=== PATIENT | male | born 1975 | race Caucasian/White ===

== ENCOUNTER 2017-07-15 06:50 | Day surgery (SDC) | payer OTHER, SELFPAY ==
[2017-07-15 07:17] VITALS: BP 125/78; PULSE 80; RESP 16; TEMP 37.6; O2SAT 96; BMI 36.1
--- NOTE | 2017-07-15 08:10 | RAD_ITS ---
PROCEDURE: Lumbar facet joint injection. DATE OF EXAMINATION: July 15, 2017. INDICATION: Male, 41 years old. Low back pain. FLUOROSCOPY TIME (if supplied): (0:16) minutes/seconds Intraoperative fluoroscopic imaging provided for left L3-S1 facet joint block. RAD/Lumbar Spine 2 or 3 Views IMPRESSION: Fluoroscopic services provided for left L3-S1 facet joint block. Electronically Signed: aBl Brown MD at 10:23 EST Tel [phone], Service support ,
[2017-07-15] MEDS: MethylPREDNISolone Acetate 80 MG/ML Vial (08:29)
[2017-07-15] MEDS: Bupivacaine 0.25% 30 ML Vial (08:30)
[2017-07-15 08:38] VITALS: BP 123/83; BP 125/78; PULSE 80; RESP 16; TEMP 37; O2SAT 94
[2017-07-15 08:40] VITALS: BP 125/61; BP 125/78; PULSE 68; RESP 16; O2SAT 94
[2017-07-15 08:45] VITALS: BP 121/68; BP 125/78; PULSE 63; RESP 16; O2SAT 96
[2017-07-15 08:50] VITALS: BP 122/80; BP 125/78; PULSE 60; RESP 16; TEMP 37.1; O2SAT 96
[2017-07-15 09:10] VITALS: BP 125/78
--- NOTE | 2017-07-15 11:20 | OP.PCM_ITS ---
Problem List (1) Lumbosacral spondylosis Status: Chronic (2) Degeneration of lumbosacral intervertebral disc Status: Chronic (3) Lumbar facet arthropathy Status: Chronic Report of Operation Date of Procedure: 07/15/17 Pre-Operative Diagnosis: Lumbosacral spondylosis, lumbosacral degenerative disc disease, lumbar facet arthropathy Post-Operative Diagnosis: Lumbosacral degenerative disc disease, lumbar sacral spondylosis, lumbar facet arthropathy Surgery/Procedure Performed:: Left-sided lumbar facet steroid injection L3, L4, L5, S1 Description of Surgical Findings:: PROCEDURE: Left-sided lumbar facet steroid injection L3, L4, L5, S1 PREOPERATIVE DIAGNOSIS: Lumbosacral spondylosis, lumbosacral degenerative disc disease, and lumbar facet arthropathy POSTOPERATIVE DIAGNOSIS: Lumbosacral spondylosis, lumbosacral degenerative disc disease, and lumbar facet arthropathy ANESTHESIA: MAC COMPLICATIONS: None BLOOD LOSS: Minimal PROCEDURE IN DETAIL: History and physical today was reviewed. Risks and benefits of the procedure were explained. The patient understood, agreed to our procedure, and informed consent was obtained. IV inserted per routine protocol. The patient was taken to the operating room, placed in a prone position with a pillow positioned underneath the abdomen. The left side of his lower back was prepped and draped in a sterile fashion using iodine x3. Under fluoroscopy guidance, on AP view, L3 through S1 vertebral bodies were visualized. Skin and subcutaneous tissues were anesthetized with approximately 5 mL of 1% lidocaine using a 25-gauge regular needle. Under direct visualization with fluoroscopy at approximately 25-degree angle, starting on the left L3, ending on the left S1, passing through the L4-L5 using a 22-gauge 3 1/2-inch spinal needle, the needle was advanced via the skin. The tip of the needle was maneuvered and directed towards the superior and medial gutter of the transverse process at the vicinity of the medial branch. Once the tip of the needle was in contact with the bone, the needle pulled approximately 2 mm off the bone. After negative aspiration of blood with CSF and confirmation of AP as well as oblique view, a total of 8 mL of preservative-free 0.25% Marcaine with 80 mg of Depo- Medrol was injection in divided doses between those 4 levels. The needles were then removed intact. The patient experienced no signs or symptoms intrathecal, intravascular injection. The patient experienced no paraesthesia. The procedure was completed without any apparent difficult, any complication. The patient appeared to tolerate well. ASSESSMENT AND PLAN: This is a 41-year-old male with lumbosacral spondylosis, lumbosacral degenerative disc disease, and lumbar facet arthropathy, status post left-sided lumbar facet steroid injection L3 through S1. The patient will continue his current medications. The patient will follow in approximately 2 weeks for possible repeat of the procedure if indicated.
== END 2017-07-15 09:12 | disposition home or self-care (01) ==
LOC: SDC 06:51 → AC 06:52
PROVIDERS: Visit Provider Anesthesiology Pain Medicine
PROC: 3E0T3BZ Introduction of Anesthetic Agent into Peripheral Nerves and Plexi, Percutaneous Approach (ICD-10-PCS; CPT 64493; principal; 2017-07-15 08:05)
DX: M51.17 Intervertebral disc disorders with radiculopathy, lumbosacral region (principal); M47.27 Other spondylosis with radiculopathy, lumbosacral region; M96.1 Postlaminectomy syndrome, not elsewhere classified; M79.1 Myalgia; F41.9 Anxiety disorder, unspecified; F32.9 Major depressive disorder, single episode, unspecified; F41.0 Panic disorder [episodic paroxysmal anxiety]; E78.5 Hyperlipidemia, unspecified; F17.200 Nicotine dependence, unspecified, uncomplicated; Z79.891 Long term (current) use of opiate analgesic; Z79.899 Other long term (current) drug therapy
CPT/HCPCS: 64493; 64494; 64495; 64483; 72100; J7120

== ENCOUNTER 2017-12-30 06:21 | Day surgery (SDC) | payer OTHER, SELFPAY ==
[2017-12-30] VITALS (7 sets, daily range): BP systolic 102–139; BP diastolic 58–80; PULSE 58–64; RESP 12–18; TEMP 36.4–37.1; O2SAT 93–99; BMI 34.7
[2017-12-30] MEDS: Bupivacaine 0.25% 30 ML Vial (07:41)
[2017-12-30] MEDS: MethylPREDNISolone Acetate 80 MG/ML Vial (07:41)
--- NOTE | 2017-12-30 09:55 | PCM.OPRPT ---
Problem List (1) Degeneration of lumbosacral intervertebral disc Status: Chronic (2) Lumbar facet arthropathy Status: Chronic (3) Lumbosacral spondylosis Status: Chronic Report of Operation Date of Procedure: 12/30/17 Pre-Operative Diagnosis: Lumbosacral spondylosis, lumbosacral degenerative disc disease, lumbar facet arthropathy Post-Operative Diagnosis: Lumbosacral spondylosis, lumbosacral degenerative disc disease, lumbar facet arthropathy Surgery/Procedure Performed:: Left sided lumbar radiofrequency ablation of the medial branch at L3, L4, L5, S1 Description of Surgical Findings:: PROCEDURE: Left-sided radiofrequency ablation of the medial branch L3, L4, L5, S1 PREOPERATIVE DIAGNOSES: Lumbosacral spondylosis, lumbosacral degenerative disc disease, lumbar facet arthropathy POSTOPERATIVE DIAGNOSES: Lumbosacral spondylosis, lumbosacral degenerative disc disease, lumbar facet arthropathy ANESTHESIA: MAC COMPLICATIONS: None BLOOD LOSS: Minimal PROCEDURE IN DETAIL: History and physical today was reviewed. Risks and benefits of procedure explained. The patient understood, agreed to the procedure and informed consent was obtained. IV inserted per routine protocol. The patient was taken to the operating room, placed in the prone position with a pillow positioned underneath the abdomen. The left side of the lower back was prepped and draped in a sterile fashion using iodine x 3. Under fluoroscopy guidance, on an oblique view, the L3 through S1 vertebral bodies were visualized. The skin and subcutaneous tissue was anesthetized with approximately 10 mL of 1% lidocaine using a 25-gauge regular needle. Under direct visualization with fluoroscopy at approximately 25-degree angle, starting on the left L3, ending on the left S1 passing through the L4-L5 using a 20-gauge 15 cm with a 10 mm curved active tip radiofrequency ablation needle the needle passed through the skin. The tip of the needle was maneuvered and directed towards the superior and medial gutter of the transverse process at the vicinity of the medial branch. Once the tip of the needle was in contact with the bone, the needle pulled approximately 2 mm up the bone. The stylet of each needle was then removed. After negative aspiration of blood with CSF and confirmation of AP as well as oblique view, radiofrequency ablation probe was then inserted at each level. Impedance was then recorded at L3 to be 244, at L4 223, at L5 314, at S1 316 ohm. Motor-evoked potential was then initiated to 1.5 volt without any motor response at each corresponding level. The probe was then removed intact and a total of 6 mL preservative-free 1% lidocaine was injected in divided doses between those 4 levels after negative aspiration of blood with CSF. The radiofrequency ablation probe was then reinserted after confirmation of AP, oblique as well as lateral view. Radiofrequency ablation was then initiated to 80 degrees Celsius for 90 seconds at each level. Once concluded, the probe was then removed intact and a total of 6 mL of preservative-free 0.25% Marcaine with 40 mg Depo-Medrol was injected in divided doses between those 4 levels. The needles were then removed intact. The patient experienced no signs or symptoms of intrathecal, intravascular injection. The patient experienced no paraesthesia. The procedure was completed without any apparent difficulty, any complication. The patient appeared to tolerate well. Sensory as well as motor exam was unchanged from prior to procedure. ASSESSMENT AND PLAN: This is a 42-year-old Male with lumbosacral spondylosis, lumbosacral degenerative disc disease, lumbar facet arthropathy, status post left-sided radiofrequency ablation of the medial branch L3 through S1. The patient will continue her current medications. The patient will follow up in approximately 2 weeks for reevaluation.
== END 2017-12-30 08:35 | disposition home or self-care (01) ==
LOC: SDC 06:22
PROVIDERS: Visit Provider Anesthesiology Pain Medicine
PROC: (CPT 64635; principal; 2017-12-30 07:15)
DX: M47.27 Other spondylosis with radiculopathy, lumbosacral region (principal); M51.37 Other intervertebral disc degeneration, lumbosacral region; M46.96 Unspecified inflammatory spondylopathy, lumbar region; M96.1 Postlaminectomy syndrome, not elsewhere classified; I48.91 Unspecified atrial fibrillation; F41.9 Anxiety disorder, unspecified; F32.9 Major depressive disorder, single episode, unspecified; E78.5 Hyperlipidemia, unspecified; Z79.891 Long term (current) use of opiate analgesic; Z79.899 Other long term (current) drug therapy; F17.200 Nicotine dependence, unspecified, uncomplicated
CPT/HCPCS: 01936; 64635; 64636; 72110; 76000; J7120

== ENCOUNTER 2018-02-24 07:08 | Day surgery (SDC) | payer OTHER, SELFPAY ==
[2018-02-24 07:45] VITALS: BP 139/82; PULSE 63; RESP 16; TEMP 37.3; O2SAT 98; BMI 34.7
--- NOTE | 2018-02-24 08:15 | RAD_ITS ---
PROCEDURE: Right L3-S1 radiofrequency ablation. DATE OF EXAMINATION: February 24, 2018. INDICATION: Male, 42 years old. Low back pain. FLUOROSCOPY TIME (if supplied): (45.1 seconds.) minutes/seconds. 14 fluoroscopic spot films were obtained. Intraoperative fluoroscopic services provided for right L3-S1 radiofrequency ablation. RAD/L/S Spine Min 4 Views IMPRESSION: Intraoperative fluoroscopic services provided for right L3 S1 radiofrequency ablation. Electronically Signed: Bal Brown MD at 8:28 EDT Tel [phone], Service support ,
[2018-02-24] MEDS: Bupivacaine Mpf 0.5% 30 ML VIAL (08:21)
[2018-02-24] MEDS: MethylPREDNISolone Acetate 80 MG/ML Vial (08:22)
[2018-02-24 08:46] VITALS: BP 139/82; BP 91/59; PULSE 55; RESP 16; TEMP 36.8; O2SAT 92
[2018-02-24 08:50] VITALS: BP 105/65; BP 139/82; PULSE 50; RESP 16; O2SAT 93
[2018-02-24 08:55] VITALS: BP 107/70; BP 139/82; PULSE 50; RESP 16; O2SAT 96
[2018-02-24 09:00] VITALS: BP 105/68; BP 139/82; PULSE 52; RESP 16; TEMP 36.9; O2SAT 94
[2018-02-24 09:09] VITALS: BP 139/82
--- NOTE | 2018-02-24 09:40 | PCM.OPRPT ---
Problem List (1) Degeneration of lumbosacral intervertebral disc Status: Chronic (2) Lumbar facet arthropathy Status: Chronic (3) Lumbosacral spondylosis Status: Chronic Report of Operation Date of Procedure: 02/24/18 Pre-Operative Diagnosis: Lumbosacral spondylosis, lumbosacral degenerative disc disease, lumbar facet arthropathy Post-Operative Diagnosis: Lumbosacral spondylosis, lumbosacral degenerative disc disease, lumbar facet arthropathy Surgery/Procedure Performed:: Right sided lumbar radiofrequency ablation of the medial branch at L3, L4, L5, S1 Description of Surgical Findings:: PROCEDURE: Right-sided radiofrequency ablation of the medial branch L3, L4, L5, S1 PREOPERATIVE DIAGNOSES: Lumbosacral spondylosis, lumbosacral degenerative disc disease, lumbar facet arthropathy POSTOPERATIVE DIAGNOSES: Lumbosacral spondylosis, lumbosacral degenerative disc disease, lumbar facet arthropathy ANESTHESIA: MAC COMPLICATIONS: None BLOOD LOSS: Minimal PROCEDURE IN DETAIL: History and physical today was reviewed. Risks and benefits of procedure explained. The patient understood, agreed to the procedure and informed consent was obtained. IV inserted per routine protocol. The patient was taken to the operating room, placed in the prone position with a pillow positioned underneath the abdomen. The right side of the lower back was prepped and draped in a sterile fashion using iodine x 3. Under fluoroscopy guidance, on an oblique view, the L3 through S1 vertebral bodies were visualized. The skin and subcutaneous tissue was anesthetized with approximately 10 mL of 1% lidocaine using a 25-gauge regular needle. Under direct visualization with fluoroscopy at approximately 25-degree angle, starting on the right L3, ending on the right S1 passing through the L4-L5 using a 20-gauge 15 cm with a 10 mm curved active tip radiofrequency ablation needle the needle passed through the skin. The tip of the needle was maneuvered and directed towards the superior and medial gutter of the transverse process at the vicinity of the medial branch. Once the tip of the needle was in contact with the bone, the needle pulled approximately 2 mm up the bone. The stylet of each needle was then removed. After negative aspiration of blood with CSF and confirmation of AP as well as oblique view, radiofrequency ablation probe was then inserted at each level. Impedance was then recorded at L3 to be 279, at L4 267, at L5 259, at S1 241 ohm. Motor-evoked potential was then initiated to 1.5 volt without any motor response at each corresponding level. The probe was then removed intact and a total of 6 mL preservative-free 1% lidocaine was injected in divided doses between those 4 levels after negative aspiration of blood with CSF. The radiofrequency ablation probe was then reinserted after confirmation of AP, oblique as well as lateral view. Radiofrequency ablation was then initiated to 80 degrees Celsius for 90 seconds at each level. Once concluded, the probe was then removed intact and a total of 6 mL of preservative-free 0.25% Marcaine with 40 mg Depo-Medrol was injected in divided doses between those 4 levels. The needles were then removed intact. The patient experienced no signs or symptoms of intrathecal, intravascular injection. The patient experienced no paraesthesia. The procedure was completed without any apparent difficulty, any complication. The patient appeared to tolerate well. Sensory as well as motor exam was unchanged from prior to procedure. ASSESSMENT AND PLAN: This is a 42-year-old male with lumbosacral spondylosis, lumbosacral degenerative disc disease, lumbar facet arthropathy, status post right-sided lumbar radiofrequency ablation of the medial branch L3 through S1. The patient will continue his current medications. The patient will follow up in approximately 2 weeks for reevaluation.
== END 2018-02-24 09:12 | disposition home or self-care (01) ==
LOC: SDC 07:10 → AC 07:11
PROVIDERS: Referring Provider Anesthesiology Pain Medicine; Visit Provider Anesthesiology Pain Medicine
PROC: (CPT 64635; principal; 2018-02-24 08:05)
DX: M47.27 Other spondylosis with radiculopathy, lumbosacral region (principal); M51.17 Intervertebral disc disorders with radiculopathy, lumbosacral region; M46.96 Unspecified inflammatory spondylopathy, lumbar region; M96.1 Postlaminectomy syndrome, not elsewhere classified; F32.9 Major depressive disorder, single episode, unspecified; F41.9 Anxiety disorder, unspecified; E78.00 Pure hypercholesterolemia, unspecified; I10 Essential (primary) hypertension; Z79.891 Long term (current) use of opiate analgesic; Z79.899 Other long term (current) drug therapy; F17.200 Nicotine dependence, unspecified, uncomplicated
CPT/HCPCS: 01992; 64635; 64636 ×3; 72110; 76000; J7120; J3490

== ENCOUNTER 2018-10-13 10:25 | Day surgery (SDC) | payer OTHER, SELFPAY ==
[2018-10-13] VITALS (8 sets, daily range): BP systolic 119–143; BP diastolic 64–89; PULSE 58–64; RESP 16; TEMP 36.6; O2SAT 95–99; BMI 33.7
--- NOTE | 2018-10-13 | RAD_ITS ---
PROCEDURE: Left C4-C7 facet block. DATE OF EXAMINATION: October 13, 2018. INDICATION: Male, 43 years old. Chronic neck pain. FLUOROSCOPY TIME (if supplied): (0:08) minutes/seconds. 4 fluoroscopic images were obtained. Intraoperative fluoroscopy provided for left C4-C7 facet block. RAD/Cerv Spine 4 or 5 Views IMPRESSION: Intraoperative imaging provided for left C4-C7 facet block. Electronically Signed: Bal Brown, at 11:00 EDT , Service support ,
[2018-10-13] MEDS: MethylPREDNISolone Acetate 80 MG/ML Vial (12:10)
[2018-10-13] MEDS: Bupivacaine 0.25% 30 ML Vial (12:10)
--- NOTE | 2018-10-13 13:34 | PCM.OPRPT ---
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 (2) Spondylosis of cervical region without myelopathy or radiculopathy Status: Chronic Report of Operation Date of Procedure: 10/13/18 Pre-Operative Diagnosis: Cervical spondylosis, cervical degenerative disc disease, cervical facet arthropathy Post-Operative Diagnosis: Cervical spondylosis, cervicogenic disc disease, cervical facet arthropathy Surgery/Procedure Performed:: Left-sided cervical facet steroid injection C4, C5, C6, C7 Description of Surgical Findings:: PROCEDURE: Left-sided cervical facet steroid injection C4, C5, C6, C7 PREOPERATIVE DIAGNOSES: Cervical spondylosis, cervical degenerative disc disease, and cervical facet arthropathy POSTOPERATIVE DIAGNOSES: Cervical spondylosis, cervical degenerative disc disease, and cervical facet arthropathy ANESTHESIA: MAC COMPLICATIONS: None BLOOD LOSS: Minimal PROCEDURE IN DETAIL: History and physical today was reviewed. Risks and benefits of the procedure were explained. The patient understood, agreed to our procedure, and informed consent was obtained. IV inserted per routine protocol. The patient was taken to the operating room, placed in a prone position with a pillow positioned underneath the chest. The neck area was prepped and draped in a sterile fashion using iodine x3. Under fluoroscopy guidance, on AP view, C4 through C7 vertebral bodies were visualized. Approximately 10 degrees angle starting on the left C4 ending on the right C7 passing through the C5-C6 using a 25-gauge 3-1/2 inch spinal needle the needle was advanced by the skin the top of the knee was maneuvering directed towards the epiphyseal junction of each corresponding vertebra once the tip of the needle was at the percentage of the medial branch and contact with the bone the needle pulled approximately 2 mm of the bone after negative aspiration for blood or CSF and confirmation AP as well as oblique and lateral view a total of 4 cc of preservative-free 0.25% Marcaine with 80 mg of Depo-Medrol were injected in divided doses between those 4 and levels. The needles were then removed intact. The patient experienced no signs or symptoms of intrathecal, intravascular injection. The patient experienced no paraesthesia. The procedure was completed without any apparent difficulty, any complication. The patient appeared to tolerate well. Sensory as well as motor exam was unchanged from prior to procedure. ASSESSMENT AND PLAN: This is a 43-year-old male with cervical spondylosis, cervical degenerative disc disease, and cervical facet arthropathy, status post left-sided cervical facet steroid injection C4-C7. The patient will continue his current medications. The patient will follow up in approximately 2 weeks fo reevaluation.
== END 2018-10-13 13:16 | disposition home or self-care (01) ==
LOC: SDC 10:28 → AC 11:48
PROVIDERS: Referring Provider Anesthesiology Pain Medicine; Visit Provider Anesthesiology Pain Medicine
PROC: 3E0U3BZ Introduction of Anesthetic Agent into Joints, Percutaneous Approach (ICD-10-PCS; CPT 64490; principal; 2018-10-13 11:45)
DX: M50.30 Other cervical disc degeneration, unspecified cervical region (principal); M47.812 Spondylosis without myelopathy or radiculopathy, cervical region; F17.200 Nicotine dependence, unspecified, uncomplicated; E78.5 Hyperlipidemia, unspecified; F41.9 Anxiety disorder, unspecified; F32.9 Major depressive disorder, single episode, unspecified; F41.0 Panic disorder [episodic paroxysmal anxiety]; K21.9 Gastro-esophageal reflux disease without esophagitis; I10 Essential (primary) hypertension; J44.9 Chronic obstructive pulmonary disease, unspecified; Z79.899 Other long term (current) drug therapy
CPT/HCPCS: 64491; 64492; 64490; 72050; J7120

== ENCOUNTER 2019-04-13 05:48 | Day surgery (SDC) | payer OTHER, SELFPAY ==
[2018-10-13 11:19] VITALS: BMI 33.7
[2019-04-13] VITALS (7 sets, daily range): BP systolic 91–137; BP diastolic 53–81; PULSE 59–75; RESP 16–18; TEMP -8.8–37.2; O2SAT 97–99; BMI 34.1
[2019-04-13] MEDS: Lactated Ringers 1,000 ML 100 ML IV (06:51)
--- NOTE | 2019-04-13 07:30 | RAD_ITS ---
STUDY: LEFT L3-S1 RADIOFREQUENCY ABLATION. REASON FOR EXAM: Male, 43 years old. Chronic back pain. FLUOROSCOPY TIME (if supplied): ( 27.2 seconds ) minutes/seconds. 10 intraoperative fluoroscopic images were obtained. TECHNIQUE: Intraoperative imaging provided for left L3-S1 radiofrequency ablation. COMPARISON: None. FINDINGS: Intraoperative fluoroscopic services provided for left L3-S1 radiofrequency ablations. RAD/L/S Spine Min 4 Views IMPRESSION: Intraoperative fluoroscopic services provided for left L3-S1 radiofrequency ablation. Electronically Signed: Bal Brown, at 9:14 EST , Service support ,
[2019-04-13] MEDS: Bupivacaine 0.25% 30 ML Vial (07:31)
[2019-04-13] MEDS: MethylPREDNISolone Acetate 80 MG/ML Vial (07:31)
--- NOTE | 2019-04-13 08:26 | PCM.OPRPT ---
Report of Operation Date of Procedure: 04/13/19 Description of Surgical Findings:: PROCEDURE: Left-sided radiofrequency ablation of the medial branch L3, L4, L5, S1 PREOPERATIVE DIAGNOSES: Lumbosacral spondylosis, lumbosacral degenerative disc disease, lumbar facet arthropathy POSTOPERATIVE DIAGNOSES: Lumbosacral spondylosis, lumbosacral degenerative disc disease, lumbar facet arthropathy ANESTHESIA: MAC COMPLICATIONS: None BLOOD LOSS: Minimal PROCEDURE IN DETAIL: History and physical today was reviewed. Risks and benefits of procedure explained. The patient understood, agreed to the procedure and informed consent was obtained. IV inserted per routine protocol. The patient was taken to the operating room, placed in the prone position with a pillow positioned underneath the abdomen. The left side of the lower back was prepped and draped in a sterile fashion using iodine x 3. Under fluoroscopy guidance, on an oblique view, the L3 through S1 vertebral bodies were visualized. The skin and subcutaneous tissue was anesthetized with approximately 10 mL of 1% lidocaine using a 25-gauge regular needle. Under direct visualization with fluoroscopy at approximately 25-degree angle, starting on the left L3, ending on the left S1 passing through the L4-L5 using a 20-gauge 15 cm with a 10 mm curved active tip radiofrequency ablation needle the needle passed through the skin. The tip of the needle was maneuvered and directed towards the superior and medial gutter of the transverse process at the vicinity of the medial branch. Once the tip of the needle was in contact with the bone, the needle pulled approximately 2 mm up the bone. The stylet of each needle was then removed. After negative aspiration of blood with CSF and confirmation of AP as well as oblique view, radiofrequency ablation probe was then inserted at each level. Impedance was then recorded at L3 to be 207, at L4 261, at L5 275, at S1 287 ohm. Motor-evoked potential was then initiated to 1.5 volt without any motor response at each corresponding level. The probe was then removed intact and a total of 6 mL preservative-free 1% lidocaine was injected in divided doses between those 4 levels after negative aspiration of blood with CSF. The radiofrequency ablation probe was then reinserted after confirmation of AP, oblique as well as lateral view. Radiofrequency ablation was then initiated to 80 degrees Celsius for 90 seconds at each level. Once concluded, the probe was then removed intact and a total of 6 mL of preservative-free 0.25% Marcaine with 40 mg Depo-Medrol was injected in divided doses between those 4 levels. The needles were then removed intact. The patient experienced no signs or symptoms of intrathecal, intravascular injection. The patient experienced no paraesthesia. The procedure was completed without any apparent difficulty, any complication. The patient appeared to tolerate well. Sensory as well as motor exam was unchanged from prior to procedure. ASSESSMENT AND PLAN: This is a 43-year-old MALE with lumbosacral spondylosis, lumbosacral degenerative disc disease, lumbar facet arthropathy, status post left-sided radiofrequency ablation of the medial branch L3 through S1. The patient will continue his current medications. The patient will follow up in approximately 2 weeks for reevaluation.
== END 2019-04-13 08:20 | disposition home or self-care (01) ==
LOC: SDC 05:50 → AC 05:52
PROVIDERS: Referring Provider Anesthesiology Pain Medicine; Visit Provider Anesthesiology Pain Medicine
PROC: (CPT 64635; principal; 2019-04-13 07:15)
DX: M51.17 Intervertebral disc disorders with radiculopathy, lumbosacral region (principal); M47.27 Other spondylosis with radiculopathy, lumbosacral region; M96.1 Postlaminectomy syndrome, not elsewhere classified; M46.96 Unspecified inflammatory spondylopathy, lumbar region; M79.10 Myalgia, unspecified site; M54.2 Cervicalgia; M47.812 Spondylosis without myelopathy or radiculopathy, cervical region; M48.02 Spinal stenosis, cervical region; F41.9 Anxiety disorder, unspecified; F32.9 Major depressive disorder, single episode, unspecified; I48.91 Unspecified atrial fibrillation; E78.5 Hyperlipidemia, unspecified; I10 Essential (primary) hypertension; J44.9 Chronic obstructive pulmonary disease, unspecified; Z79.51 Long term (current) use of inhaled steroids; K21.9 Gastro-esophageal reflux disease without esophagitis; F17.200 Nicotine dependence, unspecified, uncomplicated; Z79.891 Long term (current) use of opiate analgesic; Z79.899 Other long term (current) drug therapy
CPT/HCPCS: 64635; 64636; 72110; 76000; J7120

== ENCOUNTER 2019-05-11 06:49 | Day surgery (SDC) | payer OTHER, SELFPAY ==
[2019-04-13 06:36] VITALS: BMI 34.1
[2019-05-11] VITALS (7 sets, daily range): BP systolic 111–139; BP diastolic 74–85; PULSE 61–78; RESP 16–18; TEMP 36.6–37.2; O2SAT 95–97; BMI 34.1
[2019-05-11] MEDS: Lactated Ringers 1,000 ML 100 ML IV (07:24)
--- NOTE | 2019-05-11 08:12 | RAD_ITS ---
PROCEDURE: Radiofrequency ablation. DATE OF EXAMINATION: May 11, 2019. INDICATION: Male, 43 years old. Chronic back pain. FLUOROSCOPY TIME (if supplied): (44.8 seconds) minutes/seconds. 9 Coned-down images were obtained. Intraoperative imaging provided for right L3-S1 radiofrequency ablation. RAD/L/S Spine Min 4 Views IMPRESSION: Intraoperative imaging provided for right L3-S1 radiofrequency ablation. Electronically Signed: Bal Brown, at 10:02 EST , Service support ,
[2019-05-11] MEDS: MethylPREDNISolone Acetate 80 MG/ML Vial (08:16)
[2019-05-11] MEDS: Bupivacaine 0.25% 30 ML Vial (08:16)
--- NOTE | 2019-05-11 11:50 | PCM.OPRPT ---
Report of Operation Date of Procedure: 05/11/19 Description of Surgical Findings:: PROCEDURE: Right-sided radiofrequency ablation of the medial branch L3, L4, L5, S1 PREOPERATIVE DIAGNOSES: Lumbosacral spondylosis, lumbosacral degenerative disc disease, lumbar facet arthropathy POSTOPERATIVE DIAGNOSES: Lumbosacral spondylosis, lumbosacral degenerative disc disease, lumbar facet arthropathy ANESTHESIA: MAC COMPLICATIONS: None BLOOD LOSS: Minimal PROCEDURE IN DETAIL: History and physical today was reviewed. Risks and benefits of procedure explained. The patient understood, agreed to the procedure and informed consent was obtained. IV inserted per routine protocol. The patient was taken to the operating room, placed in the prone position with a pillow positioned underneath the abdomen. The right side of the lower back was prepped and draped in a sterile fashion using iodine x 3. Under fluoroscopy guidance, on an oblique view, the L3 through S1 vertebral bodies were visualized. The skin and subcutaneous tissue was anesthetized with approximately 10 mL of 1% lidocaine using a 25-gauge regular needle. Under direct visualization with fluoroscopy at approximately 25-degree angle, starting on the right L3, ending on the right S1 passing through the L4-L5 using a 20-gauge 15 cm with a 10 mm curved active tip radiofrequency ablation needle the needle passed through the skin. The tip of the needle was maneuvered and directed towards the superior and medial gutter of the transverse process at the vicinity of the medial branch. Once the tip of the needle was in contact with the bone, the needle pulled approximately 2 mm up the bone. The stylet of each needle was then removed. After negative aspiration of blood with CSF and confirmation of AP as well as oblique view, radiofrequency ablation probe was then inserted at each level. Impedance was then recorded at L3 to be 309, at L4 to 271, at L5 267, at S1 265 ohm. Motor-evoked potential was then initiated to 1.5 volt without any motor response at each corresponding level. The probe was then removed intact and a total of 6 mL preservative-free 1% lidocaine was injected in divided doses between those 4 levels after negative aspiration of blood with CSF. The radiofrequency ablation probe was then reinserted after confirmation of AP, oblique as well as lateral view. Radiofrequency ablation was then initiated to 80 degrees Celsius for 90 seconds at each level. Once concluded, the probe was then removed intact and a total of 6 mL of preservative-free 0.25% Marcaine with 40 mg Depo-Medrol was injected in divided doses between those 4 levels. The needles were then removed intact. The patient experienced no signs or symptoms of intrathecal, intravascular injection. The patient experienced no paraesthesia. The procedure was completed without any apparent difficulty, any complication. The patient appeared to tolerate well. Sensory as well as motor exam was unchanged from prior to procedure. ASSESSMENT AND PLAN: This is a 43-year-old male with lumbosacral spondylosis, lumbosacral degenerative disc disease, lumbar facet arthropathy, status post right-sided radiofrequency ablation of the medial branch L3 through S1. The patient will continue his current medications. The patient will follow up in approximately 2 weeks for reevaluation.
== END 2019-05-11 09:12 | disposition home or self-care (01) ==
LOC: SDC 06:50 → AC 06:50
PROVIDERS: Referring Provider Anesthesiology Pain Medicine; Visit Provider Anesthesiology Pain Medicine
PROC: (CPT 64635; principal; 2019-05-11 08:05)
DX: M51.17 Intervertebral disc disorders with radiculopathy, lumbosacral region (principal); M47.27 Other spondylosis with radiculopathy, lumbosacral region; M79.10 Myalgia, unspecified site; M47.812 Spondylosis without myelopathy or radiculopathy, cervical region; M48.02 Spinal stenosis, cervical region; I48.91 Unspecified atrial fibrillation; E78.5 Hyperlipidemia, unspecified; F41.9 Anxiety disorder, unspecified; F32.9 Major depressive disorder, single episode, unspecified; F17.200 Nicotine dependence, unspecified, uncomplicated; I10 Essential (primary) hypertension; K21.9 Gastro-esophageal reflux disease without esophagitis; Z79.899 Other long term (current) drug therapy; Z79.891 Long term (current) use of opiate analgesic
CPT/HCPCS: 64635; 64636; 72110; 76000; J7120

== ENCOUNTER 2020-01-11 06:40 | Day surgery (SDC) | payer OTHER, SELFPAY ==
[2019-05-11 07:16] VITALS: BMI 34.1
[2020-01-11 07:11] VITALS: BP 113/64; PULSE 67; RESP 16; TEMP 36.9; O2SAT 96; BMI 33.7
[2020-01-11] MEDS: Lactated Ringers 1,000 ML 100 ML IV (07:29)
--- NOTE | 2020-01-11 08:05 | RAD_ITS ---
STUDY: X-RAY - LUMBAR SPINE REASON FOR EXAM: Male, 44 years old. RADIOFREQUENCY ABLATION L3-S1 LEFT SIDE TECHNIQUE: 8 intraoperative C-arm films view(s) of the lumbar spine were obtained. COMPARISON: None FINDINGS: A limited intraoperative C-arm films were performed as the patient has undergone radiofrequency ablation from L3 to the left SI joint. No demonstrated complications RAD/L/S Spine Min 4 Views IMPRESSION: L3 the left SI joint radiofrequency ablation. Electronically Signed: Ascencion Ewing MD at 9:59 EDT , Service support ,
[2020-01-11] MEDS: MethylPREDNISolone Acetate 80 MG/ML Vial (08:09)
[2020-01-11] MEDS: Bupivacaine 0.25% 30 ML Vial (08:09)
[2020-01-11 08:25] VITALS: BP 113/64; BP 114/79; PULSE 62; RESP 16; TEMP 36.1; O2SAT 94
[2020-01-11 08:29] VITALS: BP 113/64; BP 114/79; PULSE 61; RESP 16; O2SAT 95
[2020-01-11 08:35] VITALS: BP 102/65; BP 113/64; PULSE 66; RESP 16
[2020-01-11 08:37] VITALS: BP 113/64; BP 99/65; PULSE 61; RESP 16; TEMP 36.6; O2SAT 94
--- NOTE | 2020-01-11 08:54 | PCM.OPRPT ---
Report of Operation Date of Procedure: 01/11/20 Description of Surgical Findings:: PREOPERATIVE DIAGNOSIS: Lumbosacral spondylosis, lumbosacral degenerative disc disease, lumbar facet arthropathy POSTOPERATIVE DIAGNOSIS: Lumbosacral spondylosis, lumbosacral degenerative disc disease, lumbar facet arthropathy PROCEDURE PERFORMED: Left-sided radiofrequency ablation of the medial branch at L3, L4, L5, and S1. ANESTHESIA: MAC. BLOOD LOSS: Minimal. COMPLICATIONS: None. DESCRIPTION OF PROCEDURE: History and physical of today was reviewed. Risks and benefits of the procedure were explained. The patient understood and agreed to proceed. Informed consent was obtained. IV inserted per routine protocol. The patient was taken to the operating room and placed in the prone position with a pillow positioned underneath the abdomen. The Left side of her lower back was prepped and draped in a sterile fashion using iodine x3. Under fluoroscopy guidance in an oblique view, the L3 through S1 vertebral bodies were visualized. The skin and subcutaneous tissue was anesthetized with approximately 10 mL of 1% lidocaine using a 25-gauge regular needle. Under direct visualization on fluoroscopy at approximately 25-degree angle, starting on the Left L3, ending on the Left S1, passing through the L4 and L5, using a 20-gauge 15-cm with a 10-mm curved active-tip radiofrequency ablation needle, the needle was passed through the skin. The tip of the needle was maneuvered and directed towards the superior medial gutter of the transverse process at the vicinity of the medial branch. Once the tip of the needle was in contact with the bone, the needle was pulled approximately 2 mm off the bone. The stylette of each needle was then removed. After negative aspiration of blood or CSF and confirmation on AP, oblique as well as lateral view, the radiofrequency ablation probe was then inserted at each level. Impedance was then recorded at L3 to be 275 ohm, at L4 to be 208 ohm, at L5 to be 234 ohm, and at S1 to be 202 ohm. Motor evoked potential was then initiated to 1.5 volt without any motor response at each corresponding level. The probe was then removed intact and a total of 6 mL of preservative-free 1% lidocaine was injected in divided doses between those four levels after negative aspiration of blood or CSF. The radiofrequency ablation probe was then reinserted. After confirmation on AP, oblique as well as lateral view, radiofrequency ablation was then initiated to 80 degree Celsius for 90 second at each level. Once concluded, the probe was then removed intact. A total of 6 mL of preservative-free 0.25% Marcaine with 40 mg of Depo-Medrol was injected in divided doses between those four levels. The needles were then removed intact. The patient experienced no sign or symptoms of intrathecal or intravascular injection. The patient experienced no paresthesia. The procedure was completed without any apparent difficulty or any complications. The patient appeared to tolerate it well. Sensory as well as motor exam was unchanged from prior to the procedure. ASSESSMENT AND PLAN: This is a 44-year-old male with lumbosacral spondylosis, lumbosacral degenerative disc disease, lumbar facet arthropathy status post left-sided lumbar radiofrequency ablation of the medial branch L3-S1, patient will continue current medications, patient will follow approximately 2 weeks for reevaluation.
[2020-01-11 08:55] VITALS: BP 113/64
== END 2020-01-11 08:58 | disposition home or self-care (01) ==
LOC: SDC 06:41 → AC 06:42
PROVIDERS: Referring Provider Anesthesiology Pain Medicine; Visit Provider Anesthesiology Pain Medicine
PROC: (CPT 64635; principal; 2020-01-11 07:55)
DX: M51.17 Intervertebral disc disorders with radiculopathy, lumbosacral region (principal); M47.27 Other spondylosis with radiculopathy, lumbosacral region; M96.1 Postlaminectomy syndrome, not elsewhere classified; M47.812 Spondylosis without myelopathy or radiculopathy, cervical region; M48.02 Spinal stenosis, cervical region; M25.522 Pain in left elbow; F41.9 Anxiety disorder, unspecified; F32.9 Major depressive disorder, single episode, unspecified; E78.5 Hyperlipidemia, unspecified; F17.200 Nicotine dependence, unspecified, uncomplicated; K21.9 Gastro-esophageal reflux disease without esophagitis; I10 Essential (primary) hypertension; Z79.891 Long term (current) use of opiate analgesic; Z79.899 Other long term (current) drug therapy
CPT/HCPCS: 64635; 64636; 72110; 76000; J7120

== ENCOUNTER 2020-02-29 09:59 | Day surgery (SDC) | payer OTHER, SELFPAY ==
[2020-02-29] VITALS (7 sets, daily range): BP systolic 112–137; BP diastolic 75–83; PULSE 65–71; RESP 16–18; TEMP 36.3–37.6; O2SAT 93–97; BMI 34.2
[2020-02-29] MEDS: Lactated Ringers 1,000 ML 100 ML IV (10:31)
--- NOTE | 2020-02-29 10:53 | RAD_ITS ---
CLINICAL HISTORY: Male, 44 years old. Lower back pain PROCEDURE: EPIDUROGRAM - Caudal block FLUOROSCOPY TIME (if supplied): (0:33) minutes. 2 Images. RADIATION DOSAGE (If Supplied By Facility): CTDIvol = ( ) mGy, DLP = ( ) mGycm TECHNIQUE: Under fluoroscopic guidance using sterile technique and after infiltration of the skin and subcutis soft tissues with 10 mL lidocaine 1% a 22-gauge needle is introduced in the lumbar epidural space at L4-5, 1 mL of air injected in the epidural space to ensure needle position then a mixture containing 80 mg of Depo-Medrol mixed with 3 mL lidocaine 0.25% were injected in the lumbar epidural space. RAD/L/S Spine Min 4 Views IMPRESSION: Successful lumbar epidural steroid injection under fluoroscopic guidance. Electronically Signed: Carmen Parra, at 11:10 EDT Tel , Service support ,
[2020-02-29] MEDS: MethylPREDNISolone Acetate 80 MG/ML Vial (10:56)
[2020-02-29] MEDS: Bupivacaine 0.25% 30 ML Vial (10:56)
--- NOTE | 2020-02-29 16:50 | PCM.OPRPT ---
Report of Operation Date of Procedure: 02/29/20 Description of Surgical Findings:: PROCEDURE: Right-sided lumbar radiofrequency ablation of the medial branch L3, L4, L5, S1 PREOPERATIVE DIAGNOSES: Lumbosacral spondylosis, lumbosacral degenerative disc disease, lumbar facet arthropathy POSTOPERATIVE DIAGNOSES: Lumbosacral spondylosis, lumbosacral degenerative disc disease, lumbar facet arthropathy ANESTHESIA: MAC COMPLICATIONS: None BLOOD LOSS: Minimal PROCEDURE IN DETAIL: History and physical today was reviewed. Risks and benefits of procedure explained. The patient understood, agreed to the procedure and informed consent was obtained. IV inserted per routine protocol. The patient was taken to the operating room, placed in the prone position with a pillow positioned underneath the abdomen. The right side of the lower back was prepped and draped in a sterile fashion using iodine x 3. Under fluoroscopy guidance, on an oblique view, the L3 through S1 vertebral bodies were visualized. The skin and subcutaneous tissue was anesthetized with approximately 10 mL of 1% lidocaine using a 25-gauge regular needle. Under direct visualization with fluoroscopy at approximately 25-degree angle, starting on the right L3, ending on the right S1 passing through the L4-L5 using a 20-gauge 15 cm with a 10 mm curved active tip radiofrequency ablation needle the needle passed through the skin. The tip of the needle was maneuvered and directed towards the superior and medial gutter of the transverse process at the vicinity of the medial branch. Once the tip of the needle was in contact with the bone, the needle pulled approximately 2 mm up the bone. The stylet of each needle was then removed. After negative aspiration of blood with CSF and confirmation of AP as well as oblique view, radiofrequency ablation probe was then inserted at each level. Impedance was then recorded at L3 to be 265, at L4 242, at L5 291, at S1 302 ohm. Motor-evoked potential was then initiated to 1.5 volt without any motor response at each corresponding level. The probe was then removed intact and a total of 6 mL preservative-free 1% lidocaine was injected in divided doses between those 4 levels after negative aspiration of blood with CSF. The radiofrequency ablation probe was then reinserted after confirmation of AP, oblique as well as lateral view. Radiofrequency ablation was then initiated to 80 degrees Celsius for 90 seconds at each level. Once concluded, the probe was then removed intact and a total of 6 mL of preservative-free 0.25% Marcaine with 40 mg Depo-Medrol was injected in divided doses between those 4 levels. The needles were then removed intact. The patient experienced no signs or symptoms of intrathecal, intravascular injection. The patient experienced no paraesthesia. The procedure was completed without any apparent difficulty, any complication. The patient appeared to tolerate well. Sensory as well as motor exam was unchanged from prior to procedure. ASSESSMENT AND PLAN: This is a 44-year-old male with lumbosacral spondylosis, lumbosacral degenerative disc disease, lumbar facet arthropathy, status post right-sided lumbar radiofrequency ablation of the medial branch L3 through S1. The patient will continue his current medications. The patient will follow up in approximately 2 weeks for reevaluation.
== END 2020-02-29 11:36 | disposition home or self-care (01) ==
LOC: SDC 09:59 → AC 10:00
PROVIDERS: PCP Family Medicine; Referring Provider Anesthesiology Pain Medicine; Visit Provider Anesthesiology Pain Medicine
PROC: (CPT 64635; principal; 2020-02-29 11:25)
DX: M51.17 Intervertebral disc disorders with radiculopathy, lumbosacral region (principal); M47.27 Other spondylosis with radiculopathy, lumbosacral region; M96.1 Postlaminectomy syndrome, not elsewhere classified; F41.9 Anxiety disorder, unspecified; F32.9 Major depressive disorder, single episode, unspecified; E78.5 Hyperlipidemia, unspecified; F17.200 Nicotine dependence, unspecified, uncomplicated; K21.9 Gastro-esophageal reflux disease without esophagitis; I10 Essential (primary) hypertension; J44.9 Chronic obstructive pulmonary disease, unspecified; Z79.891 Long term (current) use of opiate analgesic; Z79.899 Other long term (current) drug therapy
CPT/HCPCS: 01936; 64635; 64636; 72110; 76000; J7120

== ENCOUNTER 2020-03-28 08:23 | Day surgery (SDC) | payer OTHER, SELFPAY ==
[2020-02-29 10:20] VITALS: BMI 34.2
[2020-03-28 09:54] VITALS: BP 132/76; PULSE 78; RESP 16; TEMP 36.6; O2SAT 98; BMI 33.7
--- NOTE | 2020-03-28 10:00 | RAD_ITS ---
PROCEDURE: Caudal block. DATE OF EXAMINATION: #In 2019. INDICATION: Male, 44 years old. Chronic low back pain. FLUOROSCOPY TIME (if supplied): (2 sec) minutes/seconds. 2 images were obtained. Intraoperative fluoroscopic images provided for caudal block. RAD/Fluor Guidance for Spine Inj IMPRESSION: Intraoperative imaging provided for caudal block. Electronically Signed: Bal Brown, at 14:22 EST , Service support ,
[2020-03-28] MEDS: Lactated Ringers 1,000 ML 100 ML IV (10:12)
[2020-03-28] MEDS: Bupivacaine 0.25% 30 ML Vial (10:33)
[2020-03-28] MEDS: MethylPREDNISolone Acetate 40 MG/ML Vial IM (10:33)
[2020-03-28] MEDS: 0.9% Normal Saline (Pres. free 10 ML Vial (10:33)
[2020-03-28 10:40] VITALS: BP 124/66; BP 132/76; PULSE 78; RESP 16; TEMP 37.2; O2SAT 97
[2020-03-28 10:45] VITALS: BP 116/59; BP 132/76; PULSE 68; RESP 16; O2SAT 93
[2020-03-28 10:50] VITALS: BP 116/60; BP 132/76; PULSE 68; RESP 16; O2SAT 94
[2020-03-28 10:55] VITALS: BP 129/78; BP 132/76; PULSE 67; RESP 16; TEMP 37.2; O2SAT 95
[2020-03-28 11:09] VITALS: BP 132/76
--- NOTE | 2020-03-28 15:05 | PCM.OPRPT ---
Report of Operation Date of Procedure: 03/28/20 Description of Surgical Findings:: PREOPERATIVE DIAGNOSIS: Lumbosacral radiculopathy, lumbosacral degenerative disc disease, lumbosacral spinal stenosis POSTOPERATIVE DIAGNOSIS: Lumbosacral radiculopathy, lumbosacral degenerative disc disease, lumbosacral spinal stenosis PROCEDURE PERFORMED: Diagnostic/ therapeutic caudal epidural steroid injection. ANESTHESIA: MAC. BLOOD LOSS: Minimal. COMPLICATIONS: None. DESCRIPTION OF PROCEDURE: History and physical of today was reviewed. Risks and benefits of the procedure were explained. The patient understood and agreed to proceed. Informed consent was obtained. IV inserted per routine protocol. The patient was taken to the operating room and placed in the prone position with a pillow positioned underneath the abdomen. The lower back and tailbone area was prepped and draped in a sterile fashion using iodine x3. Under fluoroscopy guidance on a lateral view, the caudal space was identified. The skin and subcutaneous tissue was anesthetized with approximately 3 mL of 1% lidocaine using a 25-gauge regular needle. Under direct visualization with fluoroscopy, using a 22-gauge 3-1/2-inch spinal needle, the needle was advanced via the skin through the sacral hiatus. The tip of the needle was passed through the sacrococcygeal ligament and advanced to approximately S4 area. After negative aspiration of blood or CSF, a total of 3 mL of contrast was injected to confirm correct placement of the needle as well as cephalad spread. The spread was followed to approximately L5 area. After confirmation on AP as well as lateral view and repeated negative aspiration, a total of 15 mL of preservative-free 0.125% Marcaine with 80 mg of Depo-Medrol was injected easily. The needle was then removed intact. The patient experienced no sign or symptoms of intrathecal or intravascular injection. The patient experienced no paresthesia. The procedure was completed without any apparent difficulty or any complications. The patient appeared to tolerate it well. ASSESSMENT AND PLAN: This is an 44-year-old male with lumbosacral radiculopathy, lumbosacral degenerative disc disease, lumbosacral spinal stenosis status post diagnostic/therapeutic caudal epidural steroid injection. Patient will continue his current medications, the patient will follow in approximately 2 weeks for reevaluation.
== END 2020-03-28 11:10 | disposition home or self-care (01) ==
LOC: SDC 08:23 → AC 09:41
PROVIDERS: PCP Family Medicine; Referring Provider Anesthesiology Pain Medicine; Visit Provider Anesthesiology Pain Medicine
PROC: 3E0S3BZ Introduction of Anesthetic Agent into Epidural Space, Percutaneous Approach (ICD-10-PCS; CPT 62282; principal; 2020-03-28 09:55)
DX: M51.17 Intervertebral disc disorders with radiculopathy, lumbosacral region (principal); M48.07 Spinal stenosis, lumbosacral region; M47.27 Other spondylosis with radiculopathy, lumbosacral region; M96.1 Postlaminectomy syndrome, not elsewhere classified; F41.9 Anxiety disorder, unspecified; F32.9 Major depressive disorder, single episode, unspecified; I48.91 Unspecified atrial fibrillation; E78.5 Hyperlipidemia, unspecified; K21.9 Gastro-esophageal reflux disease without esophagitis; F17.200 Nicotine dependence, unspecified, uncomplicated; Z79.899 Other long term (current) drug therapy
CPT/HCPCS: 01992; 62323; 64520; 64483; 77003; J7120; J3490

== ENCOUNTER 2020-05-30 08:23 | Day surgery (SDC) | payer OTHER, SELFPAY ==
[2020-05-30 08:59] VITALS: BP 126/82; PULSE 78; RESP 16; TEMP 37.9; O2SAT 99; BMI 35.4
[2020-05-30] MEDS: Lactated Ringers 1,000 ML 100 ML IV (09:17)
--- NOTE | 2020-05-30 09:40 | RAD_ITS ---
STUDY: X-RAY - CERVICAL SPINE REASON FOR EXAM: Male, 44 years old. CERVICAL FACET INJECTION C4-C7 RIGHT SIDE TECHNIQUE: 4 view(s) of the cervical spine were obtained. COMPARISON: None FINDINGS: Fluoroscopy of the cervical spine was utilized and operating room during facet injection and 4 images are submitted for interpretation.. RAD/Cerv Spine 4 or 5 Views IMPRESSION: Fluoroscopy during facet injection. Electronically Signed: Theron Thorne MD at 8:18 EST Tel , Service support ,
[2020-05-30] MEDS: MethylPREDNISolone Acetate 40 MG/ML Vial IM (09:50)
[2020-05-30] MEDS: Bupivacaine 0.25% 30 ML Vial (09:51)
[2020-05-30 09:58] VITALS: BP 126/82; BP 128/60; PULSE 83; RESP 16; TEMP 36.5; O2SAT 93
[2020-05-30 10:00] VITALS: BP 126/82; BP 99/68; PULSE 69; RESP 18; O2SAT 93
[2020-05-30 10:15] VITALS: BP 126/79; BP 126/82; PULSE 62; RESP 18; O2SAT 95
[2020-05-30 10:20] VITALS: BP 121/64; BP 126/82; PULSE 65; RESP 18; TEMP 36.8; O2SAT 95
[2020-05-30 10:43] VITALS: BP 126/82
--- NOTE | 2020-05-30 10:52 | OP.PCM_ITS ---
Report of Operation Date of Procedure: 05/30/20 Description of Surgical Findings:: PREOPERATIVE DIAGNOSIS: Cervical spondylosis, cervical degenerative disc disease, cervical facet arthropathy POSTOPERATIVE DIAGNOSIS: Cervical spondylosis, cervical degenerative disc disease, cervical facet arthropathy PROCEDURE PERFORMED: Right-sided cervical facet steroid injection, C4, C5, C6, and C7. ANESTHESIA: MAC. BLOOD LOSS: Minimal. COMPLICATIONS: None. DESCRIPTION OF PROCEDURE: History and physical of today was reviewed. Risks and benefits of the procedure were explained. The patient understood and agreed to proceed. Informed consent was obtained. IV inserted per routine protocol. The patient was taken to the operating room and placed in the prone position with a pillow positioned underneath the chest. The neck area was prepped and draped in a sterile fashion using iodine x3. Under fluoroscopy guidance on an AP view, the C4 through C7 vertebral bodies were visualized at approximately 10- degree angle, starting on the right C4, ending on the right C7, passing through the C5 and C6. Using a 25-gauge 3-1/2-inch spinal needle, the needle was advanced via the skin. The tip of the needle was maneuvered and directed towards the epiphyseal junction of each corresponding vertebra. Once the tip of the needle was at the vicinity of the medial branch, the needle was pulled approximately 2 mm off the bone. After negative aspiration of blood or CSF and confirmation on AP, oblique as well as lateral view, a total of 4 mL of preservative-free 0.25% Marcaine with 80 mg of Depo-Medrol was injected in divided doses between those four levels. The needles were then removed intact. The patient experienced no sign or symptoms of intrathecal or intravascular injection. The patient experienced no paresthesia. The procedure was completed without any apparent difficulty or any complications. The patient appeared to tolerate it well. ASSESSMENT AND PLAN: Is a 44-year-old male with cervical spondylosis, cervical degenerative disc disease, cervical facet arthropathy status post right-sided cervical facet steroid injection C4-C7, patient will continue his current medications, patient will follow in approximately 2 weeks for reevaluation.
== END 2020-05-30 10:44 | disposition home or self-care (01) ==
LOC: SDC 08:26 → AC 08:26
PROVIDERS: PCP Family Medicine; Referring Provider Anesthesiology Pain Medicine; Visit Provider Anesthesiology Pain Medicine
PROC: 3E0U3BZ Introduction of Anesthetic Agent into Joints, Percutaneous Approach (ICD-10-PCS; CPT 64490; principal; 2020-05-30 09:35)
DX: M47.812 Spondylosis without myelopathy or radiculopathy, cervical region (principal); M50.30 Other cervical disc degeneration, unspecified cervical region; I48.91 Unspecified atrial fibrillation; E78.5 Hyperlipidemia, unspecified; F32.9 Major depressive disorder, single episode, unspecified; F41.9 Anxiety disorder, unspecified; I10 Essential (primary) hypertension; J44.9 Chronic obstructive pulmonary disease, unspecified; K21.9 Gastro-esophageal reflux disease without esophagitis; F17.200 Nicotine dependence, unspecified, uncomplicated; Z79.899 Other long term (current) drug therapy; Z79.891 Long term (current) use of opiate analgesic
CPT/HCPCS: 64491; 64490; 72050; J7120

== ENCOUNTER 2020-09-26 06:37 | Day surgery (SDC) | payer OTHER, SELFPAY ==
[2020-09-26 07:04] VITALS: BP 146/88; PULSE 77; RESP 16; TEMP 36.4; O2SAT 96; BMI 34.1
[2020-09-26] MEDS: Lactated Ringers 1,000 ML 100 ML IV (07:11)
--- NOTE | 2020-09-26 08:03 | RAD_ITS ---
PROCEDURE: Right L3-S1 radiofrequency ablation. DATE OF EXAMINATION: 09/26/2020. INDICATION: Male, 44 years old. Chronic low back pain. FLUOROSCOPY TIME (if supplied): (18 seconds.) minutes/seconds. 7 intraoperative images were obtained. Intraoperative imaging provided for right L3-S1 facet joint ablation. RAD/L/S Spine Min 4 Views IMPRESSION: Intraoperative imaging provided for right L3-S1 radiofrequency ablation. Electronically Signed: Bal Brown MD at 13:48 EDT , Service support ,
[2020-09-26] MEDS: MethylPREDNISolone Acetate 40 MG/ML Vial IM (08:10)
[2020-09-26] MEDS: Lidocaine 1% (30 ml sdv) 30 ML Vial (08:10)
[2020-09-26] MEDS: Bupivacaine 0.25% 30 ML Vial (08:10)
[2020-09-26 08:28] VITALS: BP 109/83; BP 146/88; PULSE 75; RESP 16; TEMP 36.9; O2SAT 97
[2020-09-26 08:30] VITALS: BP 129/85; BP 146/88; PULSE 72; RESP 16; O2SAT 93
--- NOTE | 2020-09-26 08:34 | PCM.OPRPT ---
Report of Operation Date of Procedure: 09/26/20 Pre-Operative Diagnosis: Lumbosacral spondylosis, lumbosacral degenerative disc disease, lumbar facet arthropathy Post-Operative Diagnosis: Lumbosacral spondylosis, lumbosacral degenerative disc disease, lumbar facet arthropathy Surgery/Procedure Performed:: Right-sided lumbar radiofrequency ablation of the medial branch L3, L4, L5, S1 Type of Anesthesia: MAC Estimated Blood Loss (mL): Minimal Description of Procedure: History and physical today was reviewed. Risks and benefits of procedure explained. The patient understood, agreed to the procedure and informed consent was obtained. IV inserted per routine protocol. The patient was taken to the operating room, placed in the prone position with a pillow positioned underneath the abdomen. The right side of the lower back was prepped and draped in a sterile fashion using iodine x 3. Under fluoroscopy guidance, on an oblique view, the L3 through S1 vertebral bodies were visualized. The skin and subcutaneous tissue was anesthetized with approximately 10 mL of 1% lidocaine using a 25-gauge regular needle. Under direct visualization with fluoroscopy at approximately 25-degree angle, starting on the right L3, ending on the right S1 passing through the L4-L5 using a 20-gauge 15 cm with a 10 mm curved active tip radiofrequency ablation needle the needle passed through the skin. The tip of the needle was maneuvered and directed towards the superior and medial gutter of the transverse process at the vicinity of the medial branch. Once the tip of the needle was in contact with the bone, the needle pulled approximately 2 mm up the bone. The stylet of each needle was then removed. After negative aspiration of blood with CSF and confirmation of AP as well as oblique view, radiofrequency ablation probe was then inserted at each level. Impedance was then recorded at L3 to be 261, at L4 269, at L5 211, at S1 212 ohm. Motor-evoked potential was then initiated to 1.5 volt without any motor response at each corresponding level. The probe was then removed intact and a total of 6 mL preservative-free 1% lidocaine was injected in divided doses between those 4 levels after negative aspiration of blood with CSF. The radiofrequency ablation probe was then reinserted after confirmation of AP, oblique as well as lateral view. Radiofrequency ablation was then initiated to 80 degrees Celsius for 90 seconds at each level. Once concluded, the probe was then removed intact and a total of 6 mL of preservative-free 0.25% Marcaine with 40 mg Depo-Medrol was injected in divided doses between those 4 levels. The needles were then removed intact. The patient experienced no signs or symptoms of intrathecal, intravascular injection. The patient experienced no paraesthesia. The procedure was completed without any apparent difficulty, any complication. The patient appeared to tolerate well. Sensory as well as motor exam was unchanged from prior to procedure. ASSESSMENT AND PLAN: This is a 44-year-old male with lumbosacral spondylosis, lumbosacral degenerative disc disease, lumbar facet arthropathy, status post right-sided radiofrequency ablation of the medial branch L3 through S1. The patient will continue his current medications. The patient will follow up in approximately 2 weeks for reevaluation. Complications None
[2020-09-26 08:35] VITALS: BP 116/90; BP 146/88; PULSE 69; RESP 16; O2SAT 94
--- NOTE | 2020-09-26 08:37 | EX.PCM.DISCH ---
Discharge Instructions Follow Up Care Test Results: Test results from this visit will be discussed in further detail at your follow-up appointment, if applicable. Discharge Plan Admission Attending Provider: Jam Gross Primary Care Provider: Brian Miller Discharge Orders/Prescriptions Prescriptions: No Action lisinopril 20 MG tablet 20 mg PO DAILY RF: 0 diltiazem HCl [Cartia XT] 120 MG capsule,extended release 24hr 120 mg PO DAILY RF: 0 duloxetine 60 MG capsule 60 mg PO DAILY RF: 0 pravastatin 20 MG tablet 20 mg PO QHS RF: 0 tizanidine [Zanaflex] 4 MG capsule 4 mg PO TID RF: 0 buprenorphine [Butrans] 1 EACH patch weekly 20 ea TRANSDERM. WE RF: 0 aspirin 325 MG tablet 325 mg PO DAILY@0800 RF: 0 diclofenac sodium 75 MG tablet,delayed release (DR/EC) 75 mg PO BIDCM RF: 0 omeprazole 20 MG capsule 20 mg PO DAILY RF: 0 albuterol sulfate [ProAir HFA] 1 PUFF inhaler 1 - 2 puff inhalation Q6H PRN PRN (Reason: Sob &/Or Wheezing) RF: 0 aripiprazole 10 MG tablet 10 mg PO DAILY RF: 0 testosterone micronized (bulk) 1,000 GM powder 500 gm MC .[id number] RF: 0 Referrals: Brian Miller MD [Primary Care Provider] - Disposition Patient Disposition: Home, self care
[2020-09-26 08:40] VITALS: BP 132/78; BP 146/88; PULSE 72; RESP 16; TEMP 37; O2SAT 93
[2020-09-26 08:59] VITALS: BP 146/88
== END 2020-09-26 09:01 | disposition home or self-care (01) ==
LOC: SDC 06:37 → AC 06:39
PROVIDERS: PCP Family Medicine; Referring Provider Anesthesiology Pain Medicine; Visit Provider Anesthesiology Pain Medicine
PROC: (CPT 64635; principal; 2020-09-26 08:05)
DX: M47.27 Other spondylosis with radiculopathy, lumbosacral region (principal); M51.17 Intervertebral disc disorders with radiculopathy, lumbosacral region; M96.1 Postlaminectomy syndrome, not elsewhere classified; E78.5 Hyperlipidemia, unspecified; I48.91 Unspecified atrial fibrillation; F41.9 Anxiety disorder, unspecified; F32.9 Major depressive disorder, single episode, unspecified; F17.210 Nicotine dependence, cigarettes, uncomplicated; Z79.891 Long term (current) use of opiate analgesic; Z79.899 Other long term (current) drug therapy
CPT/HCPCS: 64635; 64636; 72110; 76000; J7120

== ENCOUNTER 2020-11-14 05:54 | Day surgery (SDC) | payer OTHER, SELFPAY ==
[2020-11-14 06:21] VITALS: BP 141/75; PULSE 62; RESP 18; TEMP 37.2; O2SAT 97; BMI 33.7
[2020-11-14] MEDS: Lactated Ringers 1,000 ML 100 ML IV (06:31)
--- NOTE | 2020-11-14 07:27 | RAD_ITS ---
PROCEDURE: Radiofrequency ablation. DATE OF EXAMINATION: 11/14/2020 INDICATION: Male, 45 years old. Chronic pain. FLUOROSCOPY TIME (if supplied): (31 seconds) minutes/seconds. 10 fluoroscopic images were obtained. RAD/Lumbar Spine 2 or 3 Views IMPRESSION: Intraoperative imaging provided for left L3-S1 radiofrequency ablation. Electronically Signed: Bal Brown MD at 8:57 EDT , Service support ,
[2020-11-14] MEDS: MethylPREDNISolone Acetate 40 MG/ML Vial IM (07:38)
[2020-11-14] MEDS: Bupivacaine 0.25% 30 ML Vial (07:40)
[2020-11-14] MEDS: Lidocaine 1% (30 ml sdv) 30 ML Vial (07:40)
[2020-11-14 07:56] VITALS: BP 116/77; BP 141/75; PULSE 68; RESP 16; TEMP 36.3; O2SAT 95
[2020-11-14 08:00] VITALS: BP 119/76; BP 141/75; PULSE 60; RESP 16; O2SAT 95
[2020-11-14 08:05] VITALS: BP 119/76; BP 141/75; PULSE 60; RESP 16; O2SAT 96
[2020-11-14 08:10] VITALS: BP 121/88; BP 141/75; PULSE 59; RESP 16; TEMP 36.5; O2SAT 95
[2020-11-14 08:27] VITALS: BP 141/75
--- NOTE | 2020-11-14 16:06 | PCM.OPRPT ---
Report of Operation Date of Procedure: 09/26/20 Pre-Operative Diagnosis: Lumbosacral spondylosis, lumbosacral degenerative disc disease, lumbar facet arthropathy Post-Operative Diagnosis: Lumbosacral spondylosis, lumbosacral degenerative disc disease, lumbar facet arthropathy Surgery/Procedure Performed:: Left-sided lumbar radiofrequency ablation of the medial branch L3, L4, L5, S1 Type of Anesthesia: MAC Estimated Blood Loss (mL): Minimal Description of Procedure: History and physical today was reviewed. Risks and benefits of procedure explained. The patient understood, agreed to the procedure and informed consent was obtained. IV inserted per routine protocol. The patient was taken to the operating room, placed in the prone position with a pillow positioned underneath the abdomen. The left side of the lower back was prepped and draped in a sterile fashion using iodine x 3. Under fluoroscopy guidance, on an oblique view, the L3 through S1 vertebral bodies were visualized. The skin and subcutaneous tissue was anesthetized with approximately 10 mL of 1% lidocaine using a 25-gauge regular needle. Under direct visualization with fluoroscopy at approximately 25-degree angle, starting on the left L3, ending on the left S1 passing through the L4-L5 using a 20-gauge 15 cm with a 10 mm curved active tip radiofrequency ablation needle the needle passed through the skin. The tip of the needle was maneuvered and directed towards the superior and medial gutter of the transverse process at the vicinity of the medial branch. Once the tip of the needle was in contact with the bone, the needle pulled approximately 2 mm up the bone. The stylet of each needle was then removed. After negative aspiration of blood with CSF and confirmation of AP as well as oblique view, radiofrequency ablation probe was then inserted at each level. Impedance was then recorded at L3 to be 236, at L4 299, at L5 219, at S1 274 ohm. Motor-evoked potential was then initiated to 1.5 volt without any motor response at each corresponding level. The probe was then removed intact and a total of 6 mL preservative-free 1% lidocaine was injected in divided doses between those 4 levels after negative aspiration of blood with CSF. The radiofrequency ablation probe was then reinserted after confirmation of AP, oblique as well as lateral view. Radiofrequency ablation was then initiated to 80 degrees Celsius for 90 seconds at each level. Once concluded, the probe was then removed intact and a total of 6 mL of preservative-free 0.25% Marcaine with 40 mg Depo-Medrol was injected in divided doses between those 4 levels. The needles were then removed intact. The patient experienced no signs or symptoms of intrathecal, intravascular injection. The patient experienced no paraesthesia. The procedure was completed without any apparent difficulty, any complication. The patient appeared to tolerate well. Sensory as well as motor exam was unchanged from prior to procedure. ASSESSMENT AND PLAN: This is a 45-year-old male with lumbosacral spondylosis, lumbosacral degenerative disc disease, lumbar facet arthropathy, status post left-sided lumbar radiofrequency ablation of the medial branch L3 through S1. The patient will continue his current medications. The patient will follow up in approximately 2 weeks for reevaluation. Complications None
== END 2020-11-14 08:29 ==
LOC: SDC 05:54 → AC 05:55
PROVIDERS: PCP Family Medicine; Referring Provider Anesthesiology Pain Medicine; Visit Provider Anesthesiology Pain Medicine
PROC: (CPT 64635; principal; 2020-11-14 07:25)
DX: M47.27 Other spondylosis with radiculopathy, lumbosacral region (principal); M51.17 Intervertebral disc disorders with radiculopathy, lumbosacral region; M96.1 Postlaminectomy syndrome, not elsewhere classified; M47.812 Spondylosis without myelopathy or radiculopathy, cervical region; M48.02 Spinal stenosis, cervical region; M46.96 Unspecified inflammatory spondylopathy, lumbar region; I48.91 Unspecified atrial fibrillation; I10 Essential (primary) hypertension; E78.5 Hyperlipidemia, unspecified; M81.0 Age-related osteoporosis without current pathological fracture; F17.200 Nicotine dependence, unspecified, uncomplicated; Z79.82 Long term (current) use of aspirin; Z79.891 Long term (current) use of opiate analgesic; Z79.899 Other long term (current) drug therapy; G89.29 Other chronic pain
CPT/HCPCS: 64635; 64636 ×2; 72100; 76000; J7120

== ENCOUNTER 2021-07-03 07:28 | Day surgery (SDC) | payer OTHER, SELFPAY ==
[2021-07-03 07:59] VITALS: BP 135/84; PULSE 70; RESP 16; TEMP 37.3; O2SAT 98; BMI 32.8
[2021-07-03] MEDS: Lactated Ringers 1,000 ML 15 ML IV (08:01)
--- NOTE | 2021-07-03 09:00 | RAD_ITS ---
PROCEDURE: Right C4-C7 medial branch nerve block. DATE OF EXAMINATION: 07/03/2021. INDICATION: Male, 45 years old. Chronic neck pain. FLUOROSCOPY TIME (if supplied): (7 seconds) minutes/seconds. 4 spot films were obtained. RAD/Cerv Spine 4 or 5 Views IMPRESSION: Intraoperative imaging provided for right C4-C7 medial branch nerve block. Electronically Signed: Bal Brown MD at 15:01 EST ,
[2021-07-03] MEDS: Bupivacaine 0.25% 30 ML Vial (09:13)
[2021-07-03] MEDS: MethylPREDNISolone Acetate 40 MG/ML Vial IM (09:13)
[2021-07-03 09:20] VITALS: BP 122/69; BP 135/84; PULSE 67; RESP 16; TEMP 36.6; O2SAT 94
--- NOTE | 2021-07-03 09:20 | OP.PCM_ITS ---
Report of Operation Date of Procedure: 07/03/21 Description of Surgical Findings:: PREOPERATIVE DIAGNOSIS: Cervical spondylosis, cervical degenerative disc disease, cervical facet arthropathy POSTOPERATIVE DIAGNOSIS: Cervical spondylosis, cervical degenerative disc disease, cervical facet arthropathy PROCEDURE PERFORMED: Right-sided cervical medial branch block at C4, C5, C6, and C7. ANESTHESIA: MAC. BLOOD LOSS: Minimal. COMPLICATIONS: None. DESCRIPTION OF PROCEDURE: History and physical of today was reviewed. Risks and benefits of the procedure were explained. The patient understood and agreed to proceed. Informed consent was obtained. IV inserted per routine protocol. The patient was taken to the operating room and placed in the prone position with a pillow positioned underneath the chest. The neck area was prepped and draped in a sterile fashion using iodine x3. Under fluoroscopy guidance on an AP view, the C4 through C7 vertebral bodies were visualized at approximately 10- degree angle, starting on the right C4, ending on the right C7, passing through the C5 and C6. Using a 25-gauge 3-1/2-inch spinal needle, the needle was advanced via the skin. The tip of the needle was maneuvered and directed towards the epiphyseal junction of each corresponding vertebra. Once the tip of the needle was at the vicinity of the medial branch, the needle was pulled approximately 2 mm off the bone. After negative aspiration of blood or CSF and confirmation on AP, oblique as well as lateral view, a total of 4 mL of preservative-free 0.25% Marcaine with 80 mg of Depo-Medrol was injected in divided doses between those four levels. The needles were then removed intact. The patient experienced no sign or symptoms of intrathecal or intravascular injection. The patient experienced no paresthesia. The procedure was completed without any apparent difficulty or any complications. The patient appeared to tolerate it well. ASSESSMENT AND PLAN: Is a 45-year-old male with cervical spondylosis, cervical degenerative disc disease, cervical facet arthropathy status post right-sided cervical medial branch block at C4-C7, patient will continue his current medications, patient will follow in approximately 1-2 weeks for reevaluation.
[2021-07-03 09:26] VITALS: BP 102/65; BP 135/84; PULSE 72; RESP 16; O2SAT 95
[2021-07-03 09:30] VITALS: BP 125/70; BP 135/84; PULSE 65; RESP 16; O2SAT 96
[2021-07-03 09:35] VITALS: BP 108/63; BP 135/84; PULSE 59; RESP 16; TEMP 36.8; O2SAT 92
[2021-07-03 09:45] VITALS: BP 135/84
== END 2021-07-03 23:59 | disposition home or self-care (01) ==
LOC: SDC 07:31 → AC 07:31
PROVIDERS: PCP Family Medicine; Referring Provider Anesthesiology Pain Medicine; Visit Provider Anesthesiology Pain Medicine
PROC: 3E0U3BZ Introduction of Anesthetic Agent into Joints, Percutaneous Approach (ICD-10-PCS; CPT 64490; principal; 2021-07-03 09:10)
DX: M47.812 Spondylosis without myelopathy or radiculopathy, cervical region (principal); I48.91 Unspecified atrial fibrillation; M50.30 Other cervical disc degeneration, unspecified cervical region; M47.27 Other spondylosis with radiculopathy, lumbosacral region; E78.5 Hyperlipidemia, unspecified; F17.200 Nicotine dependence, unspecified, uncomplicated; F41.0 Panic disorder [episodic paroxysmal anxiety]; F32.A Depression, unspecified; Z79.899 Other long term (current) drug therapy; M19.90 Unspecified osteoarthritis, unspecified site; G89.29 Other chronic pain; I10 Essential (primary) hypertension
CPT/HCPCS: 64491; 64492; 01992; 64490; 72050; J7120

== ENCOUNTER 2022-04-02 06:27 | Day surgery (SDC) | payer OTHER, SELFPAY ==
[2022-04-02 06:47] VITALS: BP 125/75; PULSE 70; RESP 18; TEMP 527.2; TEMP 981; O2SAT 96; BMI 30.9
[2022-04-02] MEDS: Lactated Ringers 1,000 ML 15 ML IV (06:55)
[2022-04-02] MEDS: Lidocaine 1% (30 ml sdv) 30 ML Vial (07:55)
--- NOTE | 2022-04-02 07:58 | RAD_ITS ---
EXAM: XR LUMBOSACRAL SPINE, 4 OR 5 VIEWS CLINICAL INDICATION: RADIO FREQ ABLATION L4-S1,RIGHT TECHNIQUE: Frontal, lateral and bilateral oblique views of the lumbar spine. This report was created using [employer] report Guest of a Guest technology. COMPARISON: None. FINDINGS: 7 fluoroscopic spot views of the lumbar spine obtained during needle placements at multiple levels on the left. Total fluoroscopy time of 22.5 seconds with total dose of 6.83 mGy. RAD/L/S Spine Min 4 Views IMPRESSION: As above. Electronically Signed: Ifeanyi Tatum MD at 8:48 EST ,
[2022-04-02] MEDS: MethylPREDNISolone Acetate 40 MG/ML Vial IM (08:14)
[2022-04-02] MEDS: Bupivacaine 0.25% 30 ML Vial (08:14)
[2022-04-02 08:20] VITALS: BP 105/70; BP 125/75; PULSE 63; RESP 16; TEMP 37; O2SAT 92
[2022-04-02 08:25] VITALS: BP 105/70; BP 125/75; PULSE 61; RESP 16; O2SAT 94
--- NOTE | 2022-04-02 08:29 | PCM.OPRPT ---
Report of Operation Date of Procedure: 04/02/22 Pre-Operative Diagnosis: Lumbosacral spondylosis, lumbosacral degenerative disc disease, lumbar facet arthropathy Post-Operative Diagnosis: Lumbosacral spondylosis, lumbosacral degenerative disc disease, lumbar facet arthropathy Surgery/Procedure Performed:: Right-sided lumbar radiofrequency ablation of the medial branch L4, L5, S1 Type of Anesthesia: MAC Estimated Blood Loss (mL): Minimal Description of Procedure: History and physical today was reviewed. Risks and benefits of procedure explained. The patient understood, agreed to the procedure and informed consent was obtained. IV inserted per routine protocol. The patient was taken to the operating room, placed in the prone position with a pillow positioned underneath the abdomen. The right side of the lower back was prepped and draped in a sterile fashion using iodine x 3. Under fluoroscopy guidance, on an oblique view, the L3 through S1 vertebral bodies were visualized. The skin and subcutaneous tissue was anesthetized with approximately 10 mL of 1% lidocaine using a 25-gauge regular needle. Under direct visualization with fluoroscopy at approximately 25-degree angle, starting on the right L3, ending on the right S1 passing through the L4-L5 using a 20-gauge 15 cm with a 10 mm curved active tip radiofrequency ablation needle the needle passed through the skin. The tip of the needle was maneuvered and directed towards the superior and medial gutter of the transverse process at the vicinity of the medial branch. Once the tip of the needle was in contact with the bone, the needle pulled approximately 2 mm up the bone. The stylet of each needle was then removed. After negative aspiration of blood with CSF and confirmation of AP as well as oblique view, radiofrequency ablation probe was then inserted at each level. Impedance was then recorded at L3 to be 210, at L4 232, at L5 257, at S1 256 ohm. Motor-evoked potential was then initiated to 1.5 volt without any motor response at each corresponding level. The probe was then removed intact and a total of 6 mL preservative-free 1% lidocaine was injected in divided doses between those 4 levels after negative aspiration of blood with CSF. The radiofrequency ablation probe was then reinserted after confirmation of AP, oblique as well as lateral view. Radiofrequency ablation was then initiated to 80 degrees Celsius for 90 seconds at each level. Once concluded, the probe was then removed intact and a total of 6 mL of preservative-free 0.25% Marcaine with 40 mg Depo-Medrol was injected in divided doses between those 4 levels. The needles were then removed intact. The patient experienced no signs or symptoms of intrathecal, intravascular injection. The patient experienced no paraesthesia. The procedure was completed without any apparent difficulty, any complication. The patient appeared to tolerate well. Sensory as well as motor exam was unchanged from prior to procedure. ASSESSMENT AND PLAN: This is a 46-year-old male with lumbosacral spondylosis, lumbosacral degenerative disc disease, lumbar facet arthropathy, status post right-sided radiofrequency ablation of the medial branch L4 through S1. The patient will continue his current medications. The patient will follow up in approximately 2 weeks for reevaluation. Complications None
[2022-04-02 08:30] VITALS: BP 109/63; BP 125/75; PULSE 63; RESP 16; O2SAT 93
[2022-04-02 08:35] VITALS: BP 109/65; BP 125/75; PULSE 65; RESP 16; TEMP 37.2; O2SAT 94
[2022-04-02 08:45] VITALS: BP 125/75
== END 2022-04-02 09:00 | disposition home or self-care (01) ==
LOC: SDC 06:28 → AC 06:29
PROVIDERS: PCP Family Medicine; Referring Provider Anesthesiology Pain Medicine; Visit Provider Anesthesiology Pain Medicine
PROC: (CPT 64635; principal; 2022-04-02 07:55)
DX: M51.37 Other intervertebral disc degeneration, lumbosacral region (principal); M47.816 Spondylosis without myelopathy or radiculopathy, lumbar region; M47.817 Spondylosis without myelopathy or radiculopathy, lumbosacral region; I10 Essential (primary) hypertension; K21.9 Gastro-esophageal reflux disease without esophagitis; I25.10 Atherosclerotic heart disease of native coronary artery without angina pectoris; Z79.899 Other long term (current) drug therapy; G89.29 Other chronic pain; E78.00 Pure hypercholesterolemia, unspecified
CPT/HCPCS: 64635; 72110; 76000; J7120